=== PATIENT | female | born 1975 | race Caucasian/White ===

== ENCOUNTER 2016-07-31 23:21 | Emergency (ER) | payer OTHER ==
[~2016-07-31] VITALS: Ht 157.5 cm; Wt 63.5 kg
[2016-07-31] MEDS: HYDROCODONE/APAP 10-325 MG TABLET PO ONE (23:45)
[2016-07-31] MEDS: ONDANSETRON ODT 4 MG TAB.RAPDIS SL ONE (23:45)
[2016-07-31] MEDS ORDERED: ONDANSETRON ODT 4 MG TAB.RAPDIS ONE (23:54)
[2016-07-31] MEDS ORDERED: HYDROCODONE/APAP 10-325 MG TABLET ONE (23:55)
[2016-08-01] MEDS: MORPHINE SULFATE 4 MG/1 ML DISP.SYRIN IM ONE (00:50)
[2016-08-01] MEDS: ONDANSETRON ODT 4 MG TAB.RAPDIS SL ONE (00:51)
[2016-08-01] MEDS: TDAP DIPH,PERTUSS,TET VAC/PF 0.5 ML DISP.SYRIN IM ONE (00:51)
[2016-08-01] MEDS ORDERED: TDAP DIPH,PERTUSS,TET VAC/PF 0.5 ML DISP.SYRIN IM ONE (00:57)
[2016-08-01] MEDS ORDERED: MORPHINE SULFATE 4 MG/1 ML DISP.SYRIN ONE (00:57)
[2016-08-01] MEDS ORDERED: ONDANSETRON ODT 4 MG TAB.RAPDIS ONE (00:57)
--- NOTE | 2016-08-01 01:06 | NUR ---
REFUSED TO HAVE TDAP VACCINE. STATES HAD VACCINE LESS THAN A YEAR AGO
--- NOTE | 2016-08-01 01:14 | NUR ---
Patient discharged to home in stable conditon WITH FAMILY TAKING PATIENT HOME. Written and verbal after care instructions given. Patient verbalizes understanding of instructions. WALKED OUT OF ER WITH STEADY GAIT. NO DISTRESS NOTED
[2016-08-01 01:15] VITALS: BP 119/72
== END 2016-08-01 01:16 | disposition home or self-care (01) ==
LOC: ER 23:24
DX: S62.306A Unspecified fracture of fifth metacarpal bone, right hand, initial encounter for closed fracture (principal); Z88.1 Allergy status to other antibiotic agents; W18.30XA Fall on same level, unspecified, initial encounter; Y93.89 Activity, other specified; Y99.8 Other external cause status; Y92.89 Other specified places as the place of occurrence of the external cause; F41.9 Anxiety disorder, unspecified; F32.9 Major depressive disorder, single episode, unspecified
CPT/HCPCS: 73110; 73130; 90715; A4663; J2270; Q0162

== ENCOUNTER 2016-09-02 02:04 | Emergency (ER) | payer OTHER ==
[~2016-09-02] VITALS: Ht 157.5 cm; Wt 59.0 kg
[2016-09-02] MEDS ORDERED: CITA20TA19 PO (02:40)
[2016-09-02] MEDS ORDERED: KETOROLAC TROMETHAMINE 15 MG INJ IV ONE (03:15)
[2016-09-02] MEDS ORDERED: MORPHINE SULFATE 2 MG/1 ML DISP.SYRIN IV ONE (03:15)
[2016-09-02] MEDS ORDERED: ONDANSETRON 4 MG/2 ML VIAL IV ONE (03:15)
[2016-09-02] MEDS ORDERED: IV NORMAL SALINE 1000 ML BAG IV ONE (03:15)
[2016-09-02] MEDS ORDERED: KETOROLAC TROMETHAMINE 30 MG INJ IVP ONE (03:15)
[2016-09-02 03:27] LABS: *BILIRUBIN,URIN NEGATIVE (NEGATIVE); *BLOOD, URINE NEGATIVE (NEGATIVE); *CLARITY,URINE CLEAR (CLEAR); *COLOR,URINE STRAW (YELLOW); *KETONES,URINE NEGATIVE (NEGATIVE); *PROTEIN,URINE NEGATIVE (NEGATIVE); *UROBILINOGEN,URINE 0.2 E.U./dl (NORMAL); LEUKOCYTE ESTERASE ,URINE NEGATIVE (NEGATIVE); NITRITE, URINE NEGATIVE (NEGATIVE); UGLUCOSE NEGATIVE (NEGATIVE)
[2016-09-02 03:28] LABS: BASOPHILS # (AUTO) 0.1 K/uL (0.0-8.0); BASOPHILS % (AUTO) 0.8 % (0.0-2.0); EOSINOPHILS # (AUTO) 0.1 K/uL (0.0-0.7); EOSINOPHILS % (AUTO) 1.5 % (0.0-7.0); HEMOGLOBIN 13.1 G/DL (12.0-16.0); LYMPHOCYTES # (AUTO) 2.7 K/UL (0.8-4.8); MEAN CORPUSCULAR HEMOGLOBIN 29.7 UUG (27.0-31.0); MEAN CORPUSCULAR HGB CONC 33 g/dL (32.0-37.0); MEAN CORPUSCULAR VOLUME 90.4 FL (81.0-99.0); MONOCYTES # (AUTO) 0.5 K/UL (0.1-1.30); MONOCYTES % (AUTO) 6.3 % (0.0-11.0); NEUTROPHILS # (AUTO) 5.3 K/UL (1.8-8.9); NEUTROPHILS % (AUTO) 60.4 % (38.5-71.5); PLATELET COUNT (AUTO) 285 K/UL (150-450); RED BLOOD CELL COUNT(AUTO) 4.42 MIL/UL (4.2-5.4); WHITE BLOOD COUNT (AUTO) 8.7 K/UL (4.0-11.2)
[2016-09-02 03:31] LABS: BACTERIA,URINE FEW /HPF (NONE SEEN); RBC,URINE 0-3 /HPF (0-3); SQUAMOUS EPITHELIAL CELL,UR MANY /HPF (NONE SEEN); WBC,URINE 0-3 /HPF (0-3)
[2016-09-02] MEDS ORDERED: KETOROLAC TROMETHAMINE 30 MG INJ ONE (03:31)
[2016-09-02] MEDS ORDERED: ONDANSETRON 4 MG/2 ML VIAL ONE (03:31)
--- NOTE | 2016-09-02 03:43 | NUR ---
Patient eloped from facility. ER physician notified. Peripheral IV removed by patient prior to leaving. All belongings taken with patient.
[2016-09-02 04:33] LABS: CREATININE 0.9 mg/dL (0.6-1.3)
[2016-09-02 04:38] LABS: BILIRUBIN,DIRECT 0.1 mg/dL (0.0-0.2); BILIRUBIN,TOTAL 0.3 mg/dL (0.2-1.0); TOTAL PROTEIN, SERUM 7.1 g/dL (6.4-8.2)
== END 2016-09-02 03:48 | disposition left against medical advice (07) ==
LOC: ER 02:33
DX: R10.9 Unspecified abdominal pain (principal); F32.9 Major depressive disorder, single episode, unspecified; Z88.1 Allergy status to other antibiotic agents
CPT/HCPCS: 36415; 83690; 84703; 85025; A4663; J1885; J2405; J7030

== ENCOUNTER 2016-12-05 19:26 | Emergency (ER) | payer MEDICAID, OTHER ==
[~2016-12-05] VITALS: Ht 154.9 cm; Wt 56.7 kg
[~2016-12-05 19:26] MED LIST: CITA20TA19 PO
[2016-12-05] MEDS ORDERED: GABAPENTIN (19:42)
[2016-12-05] MEDS ORDERED: KETOROLAC TROMETHAMINE 30 MG INJ IVP ONE (20:00)
[2016-12-05] MEDS ORDERED: ONDANSETRON 4 MG/2 ML VIAL IV ONE (20:00)
[2016-12-05] MEDS ORDERED: OXYCODONE/APAP 5-325 MG TABLET PO ONE (20:00)
[2016-12-05 20:07] LABS: *URINE HCG, QUAL NEGATIVE (NEGATIVE)
[2016-12-05] MEDS ORDERED: KETOROLAC TROMETHAMINE 30 MG INJ ONE (20:16)
[2016-12-05] MEDS ORDERED: ONDANSETRON 4 MG/2 ML VIAL ONE (20:16)
[2016-12-05] MEDS ORDERED: OXYCODONE/APAP 5-325 MG TABLET ONE (20:16)
[2016-12-05 20:28] LABS: BASOPHILS # (AUTO) 0.1 K/uL (0.0-8.0); EOSINOPHILS # (AUTO) 0.2 K/uL (0.0-0.7); EOSINOPHILS % (AUTO) 2.1 % (0.0-7.0); HEMATOCRIT 41.5 % (37-47); HEMOGLOBIN 13.5 G/DL (12.0-16.0); LYMPHOCYTES # (AUTO) 2.2 K/UL (0.8-4.8); LYMPHOCYTES % (AUTO) 22.7 % (20.5-51.5); MEAN CORPUSCULAR HEMOGLOBIN 28.9 UUG (27.0-31.0); MEAN CORPUSCULAR HGB CONC 33 g/dL (32.0-37.0); MEAN CORPUSCULAR VOLUME 88.8 FL (81.0-99.0); MONOCYTES # (AUTO) 0.6 K/UL (0.1-1.30); MONOCYTES % (AUTO) 5.8 % (0.0-11.0); NEUTROPHILS # (AUTO) 6.4 K/UL (1.8-8.9); NEUTROPHILS % (AUTO) 68.4 % (38.5-71.5); PLATELET COUNT (AUTO) 274 K/UL (150-450); RED BLOOD CELL COUNT(AUTO) 4.67 MIL/UL (4.2-5.4); WHITE BLOOD COUNT (AUTO) 9.5 K/UL (4.0-11.2)
[2016-12-05 20:39] LABS: CREATININE 0.8 mg/dL (0.6-1.3); POTASSIUM 3.7 mmol/L (3.5-5.1)
[2016-12-05 20:45] LABS: BILIRUBIN,DIRECT 0.1 mg/dL (0.0-0.2); BILIRUBIN,TOTAL 0.3 mg/dL (0.2-1.0); TOTAL PROTEIN, SERUM 7.4 g/dL (6.4-8.2)
[2016-12-05] MEDS ORDERED: DICYCLOMINE HCL 10 MG/5 ML UDC LIQ PO ONE (21:00)
[2016-12-05] MEDS ORDERED: LIDOCAINE VISCUS 2% 15 ML UDC MM ONE (21:00)
[2016-12-05] MEDS ORDERED: MAG HYDROX/AL HYDROX/SIMETH 30 ML LIQUID UDC PO ONE (21:00)
--- NOTE | 2016-12-05 21:23 | NUR ---
IV removed. Catheter intact and site benign. Pressure and 4x4 gauze applied to site. No bleeding noted.
--- NOTE | 2016-12-05 21:24 | NUR ---
Patient discharged to home in stable conditon. Written and verbal after care instructions given. Patient verbalizes understanding of instructions. Stressed follow up with pmd/GI or return to ER for worsening s/s.
[2016-12-05] MEDS ORDERED: DICYCLOMINE HCL 10 MG/5 ML UDC LIQ ONE (21:26)
[2016-12-05] MEDS ORDERED: MAG HYDROX/AL HYDROX/SIMETH 30 ML LIQUID UDC ONE (21:26)
[2016-12-05] MEDS ORDERED: LIDOCAINE VISCUS 2% 15 ML UDC ONE (21:26)
== END 2016-12-05 21:25 | disposition home or self-care (01) ==
LOC: ER 19:28
DX: K85.90 Acute pancreatitis without necrosis or infection, unspecified (principal); Z88.1 Allergy status to other antibiotic agents; Z88.2 Allergy status to sulfonamides; Z90.49 Acquired absence of other specified parts of digestive tract
CPT/HCPCS: 36415; 74022; 76705; 80048; 80076; 83690; 84484; 84703; 85025; 93005; 96374; 96375; 99285; A4663; J1885; J2405; 70030-TC

== ENCOUNTER 2021-02-14 07:39 | Emergency (ER) | payer MEDICAID, OTHER ==
[~2021-02-14] VITALS: Ht 157.5 cm; Wt 77.1 kg
[~2021-02-14 07:39] MED LIST changes: -CITA20TA19 PO; +GABAPENTIN
[2021-02-14 08:46] LABS: *URINE HCG, QUAL NEG (NEGATIVE)
[2021-02-14 08:47] LABS: *BILIRUBIN,URIN NEGATIVE (NEGATIVE); *BLOOD, URINE 3+ (NEGATIVE); *CLARITY,URINE CLOUDY (CLEAR); *COLOR,URINE Brown (YELLOW); *KETONES,URINE NEGATIVE (NEGATIVE); *UROBILINOGEN,URINE 0.2 E.U./dl (NORMAL); LEUKOCYTE ESTERASE ,URINE 1+ (NEGATIVE); NITRITE, URINE NEGATIVE (NEGATIVE); UGLUCOSE NEGATIVE (NEGATIVE)
[2021-02-14] MEDS ORDERED: CEphaleXIN 500 MG CAPSULE PO ONE (09:00)
[2021-02-14] MEDS ORDERED: HYDROCODONE/APAP 5-325MG TABLET PO ONE (09:00)
[2021-02-14] MEDS ORDERED: HYDR-3972 PO (09:09)
[2021-02-14] MEDS ORDERED: CEPH500C2 PO (09:09)
[2021-02-14] MEDS ORDERED: HYDROCODONE/APAP 5-325MG TABLET ONE (09:15)
[2021-02-14] MEDS ORDERED: CEphaleXIN 500 MG CAPSULE ONE (09:15)
[2021-02-14 09:45] VITALS: BP 119/88
--- NOTE | 2021-02-14 09:45 | NUR ---
Patient discharged to home in stable condition. Written and verbal after care instructions given by Dr Arzate. Patient verbalizes understanding of instructions. Stressed follow up or return to ER for worsening s/s.
[2021-02-14 12:07] LABS: RBC,URINE 50-80 /HPF (0-3)
[2021-02-14 12:08] LABS: BACTERIA,URINE MODERATE /HPF (NONE SEEN); SQUAMOUS EPITHELIAL CELL,UR MODERATE /HPF (NONE SEEN)
== END 2021-02-14 09:45 | disposition home or self-care (01) ==
LOC: ER 07:39
DX: N12 Tubulo-interstitial nephritis, not specified as acute or chronic (principal); Z88.1 Allergy status to other antibiotic agents; Z88.2 Allergy status to sulfonamides; R31.9 Hematuria, unspecified
CPT/HCPCS: 84703; 87086; A4663